=== PATIENT | male | born 1950 | race Hispanic/Latino ===

== ENCOUNTER 2024-09-26 12:27 | Emergency (ER) | payer BC ==
[~2024-09-26] VITALS: Ht 172.7 cm; Wt 102.1 kg
[2024-09-26 13:19] LABS: INFLUENZA TYPE A Negative For Type A (NEGATIVE); INFLUENZA TYPE B Negative For Type B (NEGATIVE)
[2024-09-26 13:24] LABS: COVID19 (SARS ANTIGEN RAPID) PRESUMPTIVE NEGATIVE (NEGATIVE)
--- NOTE | 2024-09-26 14:00 | HMCIMG ---
CHEST 2VWS REASON: SOB COMPARISON: None FINDINGS: Two views of the chest were obtained. Lungs are clear. Heart size is normal. There is no pulmonary vascular congestion. Mediastinum appears unremarkable. There is patchy sclerotic increased density in the ribs. This can be a normal variation. Osseous metastatic disease could also cause this appearance. Clinical correlation is recommended. IMPRESSION: 1. No acute finding in the chest. 2. Patchy sclerotic increased density in the ribs and thoracic spine suspicious for osseous metastatic disease.
[2024-09-26] MEDS ORDERED: AZIT250T9 PO (15:24)
--- NOTE | 2024-09-26 15:24 | ERN ---
General Chief Complaint: Cough Stated Complaint: PNEUMONIA Time Seen by MD: 13:25 Time Seen by Midlevel: 13:25 Source: patient History of Present Illness Initial Comments Patient is a 73-year-old male with a past medical history of HIV and bone cancer presenting to the emergency department with a cough that has been intermittent for the last month. He does report some blood-tinged but denies any other symptoms at this time. He specifically denies any chest pain, shortness of nereyda th, fever, chills, or any other symptoms at this time. He states the last time this occurred he was diagnosed with pneumonia and started on antibiotics which resolved his symptoms. Allergies: Coded Allergies: Penicillins (Unverified Allergy, Intermediate, 09/26/24) Home Meds Active Scripts Azithromycin (Azithromycin) 250 Mg Tablet, 1 TAB PO AD for 5 Days, #6 TAB 0 Refills 2 the first day followed by 1 for days 2-5 Prov:NAHOMI LERMA 09/26/24 Past Medical History Past Medical History: Cancer, High Cholesterol, HIV Past Surgical History: Cholecystectomy ROS Dictation CONSTITUTIONAL: Negative except for HPI HEAD/FACE: Negative except for HPI EENT: Negative except for HPI RESPIRATORY: Negative except for HPI GASTROINTESTINAL/ABDOMINAL: Negative except for HPI GENITOURINARY: Negative except for HPI MUSCULOSKELETAL: Negative except for HPI INTEGUMENTARY: Negative except for HPI NEUROLOGICAL/PSYCH: Negative except for HPI HEMATOLOGIC/LYMPHATIC: Negative except for HPI All Systems Negative, Except as noted above. 13 point review of systems assessed and all negative except for above. Physical Exam Physical Exam Dictation Vital Signs reviewed General Appearance: Alert, oriented x 3, no acute distress, well developed, nou rished. Head and Face: non-traumatic. Eyes: PERRL, pink conjunctivas, eyelid no trauma, anterior chamber with arcus senilis. Ears: Pinnas intact and no signs of trauma or erythema ear canals clear and no discharge TM no erythema Nose: No discharge, no bleeding. Oropharynx: Mouth normal, tongue pink, pharynx clear,no erythema, tonsils no exudates, no abscesses noted, mucous me mbrane moist Neck: Supple, non-tender, no thyromegaly, no masses, no JVD, no bruits Breast:Deferred Chest:No tenderness, no crepitus, no paradoxical movement, no retractions Lungs:Clear, well-ventilated, symmetric, no rales, no wheezing, no rhonchi, no stridor, good breath sounds bilaterally Heart: Regular rate, regular rhythm, no murmur, no gallops Vascular: no peripheral edema, Abdomen: Soft, positive bowel sounds, nondistended, no guarding, nontender, no rebound, no masses no hepatomegaly, no splenomegaly, no Gilbert's sign, no hernias. Rectal: Deferred Genital: Deferred Neurological: Normal speech, motor function intact, sensory function intact Musculoskeletal: Neck nontender, full range of motion, back nontender, full range of motion, Extremities: nontender, full range of motion Skin: Color pink, dry, no turgor, no rash, no lacerations, no abrasions, no contusions. Lymphatic: Deferred Results Laboratory and Microbiology Lab and Micro Result Laboratory Tests Test 09/26/24 12:47 Influenza Type A Antigen Negative For Type A Influenza Type B Antigen Negative For Type B SARS-CoV-2 Antigen (Rapid) PRESUMPTIVE NEGATIVE Labs Reviewed?: Yes MDM MDM: Patient is a 73-year-old male with a past medical history of HIV and bone cancer presenting to the emergency department with a cough that has been intermittent for the last month. He does report some blood-tinged but denies any other symptoms at this time. He specifically denies any chest pain, shortness of breath, fever, chills, or any other symptoms at this time. He states the last time this occurred he was diagnosed with pneumonia and started on antibiotics which resolved his symptoms. On physical examination patient is in no acute respiratory distress. Initial vital signs are stable. Patient is afebrile and nontoxic appearing. No cough was noted during my examination. His chest x-ray does not show any evidence of pneumonia or pulmonary edema. Patient will be discharged home with supportive management. Differential diagnosis: Pneumonia, acute bronchitis, pneumonitis, There are no social concerns with this patient. Prescription drug management Prescriptions will include: Azithromycin Medical management and examination interpretation discussions were had by me with other qualified healthcare professionals as indicated for the patient's care. ED Course Orders Procedure Category Date Status Time Chest 2vws RAD 09/26/24 Resulted 12:47 Influenza Type A & B, LAB 09/26/24 Complete Rapid 12:47 Covid19 (Sars Antigen LAB 09/26/24 Complete Rapid) 12:47 Vital Signs Date Time Temp Pulse Resp B/P (MAP) Pulse Ox O2 Delivery O2 Flow Rate FiO2 09/26/24 15:57 99.1 77 17 147/78 96 Room Air* 0 21 09/26/24 12:48 98.1 80 20 136/69 96 Room Air 0 [facility] [address] [place] [address] IMAGING REPORT Signed PATIENT: MAUREEN ALANIZ MR#: [id number] : 1950 SEX: M AGE: 73 LOCATION: [facility] ORDER 47 STATUS: REG REPORT#: [id number] SERVICE 46 REASON: SOB ORDERING PHYSICIAN: JOHN OLIVIA MD PROCEDURE: CXR2VW - CHEST 2VWS CHEST 2VWS REASON: SOB COMPARISON: None FINDINGS: Two views of the chest were obtained. Lungs are clear. Heart size is normal. There is no pulmonary vascular congestion. Mediastinum appears unremarkable. There is patchy sclerotic increased density in the ribs. This can be a normal variation. Osseous metastatic disease could also cause this appearance. Clinical correlation is recommended. IMPRESSION: 1. No acute finding in the chest. 2. Patchy sclerotic increased density in the ribs and thoracic spine suspicious for osseous metastatic disease. DICTATED BY: JIM SANTOS MD DATE: 09/26/24 1356 ELECTRONICALLY SIGNED BY: JIM SANTOS MD DATE: 09/26/24 1400 DX & DISP Disposition: Discharge Departure Impression: Primary Impression: Pneumonitis Condition: Stable Scripts Azithromycin (Azithromycin) 250 Mg Tablet 1 TAB PO AD for 5 Days, #6 TAB 0 Refills 2 the first day followed by 1 for days 2-5 Prov: NAHOMI LERMA 09/26/24 Referrals: SELF,REFERRAL (PCP) Time of Disposition: 15:23 I have reviewed the case, and I agree with, Diagnosis and Plan I performed the substantive portion of the visit. I have reviewed and personally made and approve the management plan that is documented in the note by myself or the HARLAN. I acknowledge for responsibility for the patient's managem ent plan. NAHOMI LERMA Sep 26, 2024 15:24
[2024-09-26 15:57] VITALS: BP 147/78; PULSE 77; RESP 17; TEMP 99.1; O2SAT 96
== END 2024-09-26 16:06 | disposition home or self-care (01) ==
LOC: EDH 12:27
DX: J98.4 Other disorders of lung (principal); E78.00 Pure hypercholesterolemia, unspecified; Z88.0 Allergy status to penicillin; Z90.49 Acquired absence of other specified parts of digestive tract; Z20.822 Contact with and (suspected) exposure to COVID-19; Z21 Asymptomatic human immunodeficiency virus [HIV] infection status
CPT/HCPCS: 71046; 87426; 87804; 99283